=== PATIENT | female | born 2000 | race Caucasian/White ===

== ENCOUNTER 2022-06-09 14:57 | Outpatient (CLI) | payer OTHER ==
[2022-06-09] VITALS (15 sets, daily range): BP systolic 137–169; BP diastolic 77–101; PULSE 83–111; TEMP 98.7
[~2022-06-09] VITALS: Ht 167.6 cm; Wt 119.1 kg
[2022-06-09] MEDS ORDERED: PRENATAL TABLET PO (15:18)
[2022-06-09] MEDS ORDERED: ZYRTEC5 MG PO (15:19)
--- NOTE | 2022-06-09 15:30 | NUR ---
1500- Pt arrives on unit ambulatory with her mother. Sent over from her clinic visit by Dr Wellington with elevated BPs. Labs obtained in office, results pending. Lights dimmed. 1505- Pt into bed, EFM and TOCO applied. O2 sat monitor on and tracing maternal HR. Serial BPs initiated every 15mins. Assessments completed. Pt denies BURGESS, blurred vision or seeing spots, no upper gastric pain. 2+ Pitting edema to bilateral feet and ankles. 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 1525- Discussed POC, call light at bedside. Pt denies questions at this time.
--- NOTE | 2022-06-09 17:30 | NUR ---
1706- Dr Wellington at nurses station, reviews BPs and FHR tracing. To bedside to discuss POC options. MD wanting to perform SVE, Pt up to bathroom to void. 1712- SVE, closed per Dr Wellington. MD answers questions and more discussion on options/recommendations. Pt prefers to try medications to see if BP will decrease to prolong if possible.
--- NOTE | 2022-06-09 18:55 | NUR ---
called for update on pt. See physican notification. Discharge order received. 1901: Pt updated on new orders and discharge instructions. 1924: Pt ambulatory off unit and home with mother.
[2022-06-12] MEDS ORDERED: PROCARDIA XL 3030 MG PO (04:21)
== END 2022-06-09 19:25 | disposition home or self-care (01) ==
LOC: LDRO 14:57
DX: O16.9 Unspecified maternal hypertension, unspecified trimester (principal); Z3A.35 35 weeks gestation of pregnancy
CPT/HCPCS: J0702

== ENCOUNTER 2024-01-09 02:18 | Inpatient (IN) | payer OTHER ==
[~2024-01-09] VITALS: Ht 167.6 cm; Wt 116.8 kg
[2024-01-09] VITALS (27 sets, daily range): BP systolic 110–146; BP diastolic 50–93; PULSE 62–108; TEMP 97.5–98
[~2024-01-09 02:18] MED LIST: IBU600 MG PO; PRENATAL TABLET PO; PROCARDIA XL 3030 MG PO; ROXICODONE 55 MG/TAB PO; TRANDATE 200MG200 MG PO; ZYRTEC5 MG PO
--- NOTE | 2024-01-09 02:25 | NUR ---
Presents to L&D, ambulatory, accompanied by spouse, with c/o contractions over last hour, every 3 minutes. Note, patient does not appear to be in discomfort. Denies any leaking of fluid, or vaginal bleeding. Reports positive movement.
[2024-01-09] MEDS ORDERED: ASPIRIN 81M81 MG/TA2 PO (02:28)
[2024-01-09] MEDS ORDERED: LR 1,000 ML IV PRN ×2 (02:30→08:00)
[2024-01-09] MEDS ORDERED: Acetaminophen 500 MG TAB PO PRN (03:45)
--- NOTE | 2024-01-09 03:57 | NUR ---
Repositioned left lateral upon return from bathroom.
[2024-01-09] MEDS ORDERED: LR 1,000 ML IV SCH ×3 (06:00→06:45)
[2024-01-09] MEDS ORDERED: Gentamicin/Sodium Chloride 100 ML IV ONE (06:15)
[2024-01-09] MEDS ORDERED: Ondansetron 4 MG/2 ML VIAL IV ONE (06:15)
[2024-01-09] MEDS ORDERED: dexAMETHasone 10 MG/ML VIAL ONE ×2 (06:18→06:20)
[2024-01-09] MEDS ORDERED: Oxytocin 10 UNITS/ML VIAL ONE (06:18)
[2024-01-09] MEDS ORDERED: Ondansetron 4 MG/2 ML VIAL ONE (06:18)
[2024-01-09] MEDS ORDERED: Ketorolac 30 MG/ML VIAL ONE (06:18)
[2024-01-09 06:27] LABS: BASO % 0.2 % (0.0-2.0); EOS # 0.1 K/mm3 (0.0-0.7); EOS % 0.5 % (0.0-4.0); GRAN # 8.7 K/mm3 (1.4-6.5); GRAN % 69.5 % (42.2-75.2); HEMATOCRIT 38.7 % (37.0-47.0); HEMOGLOBIN 12.9 g/dl (12.5-16.0); LYMPH # 2.6 K/mm3 (1.2-3.4); MEAN CELL VOLUME 89 fl (80.0-100.0); MEAN CORPUSCULAR HEMOGLOBIN 30 pg (27-31); MEAN CORPUSCULAR HGB CONC 33 g/dl (33.0-37.0); MEAN PLATELET VOLUME 11.8 fl (7.4-10.4); MONO % 8.2 % (1.7-9.3); PLATELET COUNT 168 K/mm3 (130-400); RED BLOOD COUNT 4.35 M/mm3 (4.10-5.30); REDCELL DISTRIBUTION WIDTH-CV 14.6 % (11.5-14.5)
[2024-01-09] MEDS ORDERED: Ondansetron 4 MG/2 ML VIAL IV SCH (06:45)
[2024-01-09] MEDS ORDERED: Morphine 4 MG/ML VIAL IV PRN (08:00)
[2024-01-09] MEDS ORDERED: Naloxone 0.4 MG/ML VIAL IV PRN (08:00)
[2024-01-09] MEDS ORDERED: oxyCODONE 5 MG TAB PO PRN (08:00)
[2024-01-09] MEDS ORDERED: Sennosides/Docusate 8.6-50 MG TAB PO SCH (08:00)
[2024-01-09] MEDS ORDERED: Magnes Hydrox (MOM) 80 MG/ML 30 ML CUP PO PRN (08:00)
[2024-01-09] MEDS ORDERED: Ondansetron 4 MG/2 ML VIAL IV PRN (08:00)
[2024-01-09] MEDS ORDERED: Acetaminophen 500 MG TAB PO SCH (08:00)
[2024-01-09] MEDS ORDERED: Measles/Mumps/Rubella Virus Vaccine Live w Diluent 0.5 ML VIAL SQ SCH (08:00)
[2024-01-09] MEDS ORDERED: Loratadine 10 MG TAB PO PRN (08:00)
[2024-01-09] MEDS ORDERED: Ibuprofen 600 MG TAB PO SCH (13:56)
--- NOTE | 2024-01-09 17:30 | NUR ---
PT UP TO SIDE OF BED, STANDING STEADY. AMBULATORY TO BATHROOM, WEBER REMOVED, UNABLE TO VOID. NEW PAD AND PANTIES PLACED. PT AMBULATORY BACK TO BED. BINDER PLACED. PT COMFORTABLE.
[2024-01-09] MEDS ORDERED: traZODone 50 MG TAB PO PRN (21:00)
[2024-01-10 08:45] VITALS: BP 136/69; PULSE 98; TEMP 98.6
== END 2024-01-10 13:45 | disposition home or self-care (01) | DRG 788 ==
LOC: LDRO 02:18 → LDR 02:20 → OB 02:20 → LDR 02:20 → EDSTATUS 06:04 → OB 12:08
PROVIDERS: Obstetrics & Gynecology; ADMIT Obstetrics & Gynecology
PROC: 10D00Z1 Extraction of Products of Conception, Low, Open Approach (ICD-10-PCS; principal; 2024-01-09)
DX: O34.211 Maternal care for low transverse scar from previous cesarean delivery (principal); Z3A.38 38 weeks gestation of pregnancy; Z37.0 Single live birth; O99.214 Obesity complicating childbirth; O99.344 Other mental disorders complicating childbirth; F41.9 Anxiety disorder, unspecified
CPT/HCPCS: J0665; J0737; J1100; J1580; J1885; J2405; J2590; J7120